=== PATIENT | male | born 1990 | race Two or more races ===

== ENCOUNTER 2020-03-17 14:26 | Emergency (ER) | payer SELFPAY ==
[~2020-03-17] VITALS: Ht 180.3 cm; Wt 82.7 kg
[2020-03-17 15:15] VITALS: BP 145/71
[2020-03-17] MEDS ORDERED: ERYT1OIN6 OS (15:43)
[2020-03-17] MEDS ORDERED: OLOP5DRO13 OD (15:43)
--- NOTE | 2020-03-17 15:48 | PHYS DOC ---
Past Medical History Past Medical History: No Pertinent History Past Surgical History: No Surgical History Smoking Status: Never Smoker Alcohol Use: Occasionally General Adult EDM: Chief Complaint: EYE PROBLEMS HPI: HPI: Patient is a 29 year old male who presents to the emergency department with complaints of pain and itching with blood-tinged drainage to his left eye since yesterday. Patient denies any recent injury to his eye. He reports havi ng swollen tissue in his medial inner canthus of the affected eye for the last year after work-related injury when he was poked with a metal object in that area. He denies any blurry vision, crusting of his eyes, vision changes, sensitivity to light, fever, cough, abdominal pain, or rash. He currently rates his discomfort a 3 out of 10 on the pain scale, he denies any alleviating or exacerbating factors. He denies any radiation of the pain. Review of Systems: Review of Systems: Constitutional: Denies fever or chills. [] Eyes: See HPI HENT: Denies nasal congestion or sore throat. [] Respiratory: Denies cough or shortness of breath. [] Integument: Denies rash. [] Neurologic: Denies headache, focal weakness or sensory changes. [] Psychiatric: Denies depression or anxiety. [] Heart Score: Risk Factors: Risk Factors: DM, Current or recent (<one month) smoker, HTN, HLP, family history of CAD, obesity. Risk Scores: Score 0 - 3: 2.5% MACE over next 6 weeks - Discharge Home Score 4 - 6: 20.3% MACE over next 6 weeks - Admit for Clinical Observation Score 7 - 10: 72.7% MACE over next 6 weeks - Early Invasive Strategies Physical Exam: PE: Constitutional: Well developed, well nourished, no acute distress, non-toxic appearance. [] HENT: Normocephalic, atraumatic, bilateral external ears normal, oropharynx moist, nose normal. [] Eyes: PERRLA, EOMI, conjunctiva normal, no discharge; left eye: Erythemic granular tissue noted to inner canthus of lower lid consistent with pyogenic granulation. No edema Neck: Normal range of motion, no stridor. [] Cardiovascular:Heart rate regular rhythm Lungs & Thorax: Respirations even and unlabored, no retractions, no respiratory distress Skin: Warm, dry, no erythema, no rash. [] Extremities: No cyanosis, no clubbing, ROM intact, no edema. [] Neurologic: Alert and oriented X 3, Current Patient Data: Vital Signs: Vital Signs Date Time Temp Pulse Resp B/P (MAP) Pulse Ox O2 Delivery O2 Flow Rate FiO2 03/17/20 15:15 97.8 77 14 145/71 (95) 98 Room Air 97.8 EKG: EKG: [] Radiology/Procedures: Radiology/Procedures: [] Course & Med Decision Making: Course & Med Decision Making Pertinent Labs and Imaging studies reviewed. (See chart for details) [id number] spoke with Dr. Jeffrey about patient and his presentation to the emergency department. Per Dr. Jeffrey he recommends prescribing erythromycin eye ointment for possible conjunctivitis, and recommending [id number] allergy drops for relief of itching. Prescriptions were written for erythromycin and Pataday eyedrops. I encouraged the patient to follow-up with his eye doctor or Dr. Jeffrey if his symptoms persist, return to the ER if symptoms worsen. Patient verbalized an understanding of home care, medications, follow-up, and return to ED instructions and was in agreement with the plan of care. [] Dragon Disclaimer: Dragon Disclaimer: This electronic medical record was generated, in whole or in part, using a voice recognition dictation system. Departure Departure Impression: Primary Impression: Allergic conjunctivitis of left eye Additional Impressions: Conjunctivitis, left eye Qualified Codes: H10.32 - Unspecified acute conjunctivitis, left eye Pyogenic granuloma of eyelid Disposition: 01 HOME, SELF-CARE Condition: STABLE Referrals: NO PCP (PCP) KARINE JEFFREY MD Patient Instructions: Allergic Conjunctivitis, [id number], Bacterial Conjunctivitis, Leht-se-Ykwa Additional Instructions: Fill the prescription(s) and use as directed. Apply warm, moist washcloths to eyes needed for comfort. Follow-up with your scruff worker or Dr. Jeffrey in 1- 2 days. Return to the emergency room if your symptoms worsen. Scripts Olopatadine HCl (Olopatadine HCl) 5 Ml Drops 1 DROP OD BID PRN for ITCHING MDD 2 drops, #5 ML 0 Refills Prov: KAY MCCALL GARAGE SUPERVISOR 03/17/20 Erythromycin Base (Erythromycin) 1 Gm Oint...g. 0.5 INCH OS QID for 5 Days, #1 TUBE 0 Refills Prov: KAY MCCALL GARAGE SUPERVISOR 03/17/20 Justicifation of Admission Dx: Justifications for Admission: Justification of Admission Dx: N/A KAY MCCALL GARAGE SUPERVISOR Mar 17, 2020 15:48
== END 2020-03-17 16:10 | disposition home or self-care (01) ==
LOC: ER 14:26
DX: H10.12 Acute atopic conjunctivitis, left eye (principal); H01.8 Other specified inflammations of eyelid
CPT/HCPCS: 99283